=== PATIENT | female | born 1990 | race African-American/Black ===

== ENCOUNTER 2020-04-13 11:22 | Emergency (ER) | payer OTHER, SELFPAY ==
[2020-04-13 11:33] VITALS: BP 133/88; PULSE 73; RESP 16; TEMP 36.5; O2SAT 99
--- NOTE | 2020-04-13 12:06 | ED.FEMALEGU ---
HPI - Female Genitourinary General Chief complaint: Urogenital-Female Stated complaint: UTI Time Seen by Provider: 04/13/20 12:07 Source: patient and RN notes reviewed Mode of arrival: ambulatory Limitations: no limitations History of Present Illness HPI Narrative: 29-year-old female who presents to [facility] care with complaints of urinary symptoms since last p.m.Patient states that she has some urinary pressure when she urinates, denies any burning or any noted hematuria states that her urine is real dark in color. She states that she is having similar symptoms like she had previously with a UTI. Patient denies any fevers, chills, no abdominal pain, no CVA tenderness or any nausea or incidence of vomiting. Patient denies any vaginal discharge or any vaginal itching. Patient has not taken any OTC AZO for her symptoms.Last menses one week ago. MD elicited complaint: other (urinary pressure) Pertinent past history: other (previous UTI with similar symptoms) Onset (ago): day(s) (1) Location of symptoms: perineum Severity: similar to previous episodes Female Urogenital Radiation: Non-Radiating Quality of pain: other (pressure) Consistency: intermittent Vaginal discharge: none Vaginal bleeding: none Urinary symptoms: Foul Smelling Urine (urine dark in color) Exacerbating factors: none Relieving factors: none Associated symptoms: denies other symptoms Treatment prior to arrival: none Sexual activity: Yes Patient : No Date of Last Menstrual Period: 04/04/20 Related Data Allergies Allergy/AdvReac Type Severity Reaction Status Date / Time No Known Allergies Allergy Verified 04/13/20 11:34 Review of Systems Review of Systems: Narrative: CONSTITUTIONAL: Denies fever, chills, or sweats. EYES: Denies visual changes, redness, or discharge. ENT: Denies rhinorrhea, congestion, sore throat, or otalgia. CARDIOVASCULAR: Denies chest pain, palpitations, or edema. RESPIRATORY: Denies cough or dyspnea. GASTROINTESTINAL: Denies abdominal pain, nausea, vomiting, or diarrhea. GENITOURINARY: pressure in perineum with urination no visual hematuria SKIN: Denies rash or itching. MUSCULOSKELETAL: Denies back pain, joint pain, or myalgia. NEUROLOGIC: Denies headache, numbness, or weakness. PSYCHIATRIC: Denies anxiety or depression. All systems reviewed & are unremarkable except as noted in HPI and below PMFSH Past Medical History Medical History (Updated 04/14/20 @ 15:16 by Araseli Thacker NP) History of cellulitis Social History Social History (Updated 04/14/20 @ 15:17 by Araseli Thacker NP) Smoking status: Never smoker Living arrangements: with family Gender identity (if verbalized by the patient): Female Comments At time of signature, agree with nursing past medical, surgical, social history. There is no relevant family history pertinent to the presenting complaint Exam Narrative: Exam Narrative: GENERAL: Well-appearing, well-nourished, and in no acute distress. HEAD: Normocephalic, atraumatic. EYES: PERRLA and EOMI. ENT: Nares clear, no rhinorrhea or epistaxis. Mucous membranes moist. NECK: Supple.no lymphadenopathy CHEST: Clear to auscultation. No respiratory distress. HEART: Regular rate and rhythm. No murmur heard. Normal peripheral pulses. ABDOMEN: Soft, nontender to palpation, nondistended, normal active bowel sounds.No CVA tenderness on exam, perineal pressure with urine dark and cloudy in appearance EXTREMITIES: Normal range of motion. No edema. SKIN: Warm, dry, no rash. NEURO: No focal deficits. Alert and oriented x3. Course Vital Signs Vital signs: Vital Signs Temperature 36.5 C 04/13/20 11:33 Pulse Rate 73 04/13/20 11:33 Respiratory Rate 16 04/13/20 11:33 Blood Pressure 133/88 04/13/20 11:33 Pulse Oximetry 99 04/13/20 11:33 Temperature 36.5 C 04/13/20 11:33 Pulse Rate 73 04/13/20 11:33 Respiratory Rate 16 04/13/20 11:33 Blood Pressure 133/88 04/13/20 11:33 Pulse Oximetr
== END 2020-04-13 12:26 | disposition home or self-care (01) ==
PROVIDERS: Emergency Provider Registered Nurse
DX: N39.0 Urinary tract infection, site not specified (principal)
CPT/HCPCS: 81003; 87086; 87088; 99213; G0463

== ENCOUNTER 2021-07-07 09:17 | Emergency (ER) | payer MEDICAID, SELFPAY ==
[2021-07-07 09:28] VITALS: BP 116/70; PULSE 75; RESP 16; TEMP 36.3; O2SAT 100
--- NOTE | 2021-07-07 09:52 | ED.URI ---
HPI - URI/Sore Throat General Chief Complaint: Upper Respiratory Infection Stated Complaint: Sore Throat Time Seen by Provider: 07/07/21 09:52 Source: patient Mode of arrival: ambulatory Limitations: no limitations History of Present Illness HPI Narrative: Alberta Jones is a 31 yo female with no PMH w mild congestion but very sore throat this morning painful bilaterally to palpate no fever states feels poorly Related Data Allergies Allergy/AdvReac Type Severity Reaction Status Date / Time No Known Allergies Allergy Verified 07/07/21 10:08 Review of Systems Review of Systems: CONSTITUTIONAL: Denies fever, chills, sweats. EYES: Denies visual changes, redness, discharge. ENT: Denies rhinorrhea, mild congestion, has sore throat, otalgia. CARDIOVASCULAR: Denies chest pain, palpitations, edema. RESPIRATORY: Denies dyspnea, wheezing, cough GASTROINTESTINAL: Denies abdominal pain, nausea, vomiting, diarrhea. GENITOURINARY: Denies dysuria, hematuria, abnormal discharge SKIN: Denies rash or itching. NEUROLOGIC: Denies numbness, or focal weakness. PSYCHIATRIC: Denies anxiety or depression. [facility] Past Medical History Medical History History of cellulitis No acute medical problems Social History Social History Smoking status: Never smoker Gender identity (if verbalized by the patient): Female Comments At time of signature, I agree with nursing past medical, surgical, social and family history. There is no relevant family history pertinent to the presenting complaint. Exam Narrative: GENERAL: This is a well-nourished, well-developed patient, in mild distress. HEAD: normocephalic, atraumatic. EYES: . Sclera clear/white. Vision is grossly intact. EARS: External ears normal, auditory canals erythema and without drainage, TMs normal without perforation. Hearing grossly intact. NOSE: External nose normal without nasal discharge, nares without redness, mild rhinorrhea. THROAT: Mucous membranes moist, posterior pharynx erythema with mild edema NECK: Neck supple, tender lymph nodes CARDIOVASCULAR: Regular rate and rhythm without murmurs, gallops, or rubs. RESPIRATORY: Clear to auscultation. Breath sounds equal bilaterally. No wheezes, rales, or rhonchi. GASTROINTESTINAL: Abdomen soft, SKIN: warm, intact with no suspicious lesions or rash, good texture and turgor. NEURO: awake, alert, and oriented to person, place and time. There were no obvious focal neurologic abnormalities. Steady gait EXTREMITIES: Normal range of motion. BACK: Nontender without deformity Course Course Emergency Course: Patient comes with 24 hours of sore throat and mild congestion, full lymph nodes Strep test done Started on amoxicillin and prednisone and Cepacol lozenge Vital Signs Vital signs: Vital Signs Temperature 97.4 F L 07/07/21 09:28 Pulse Rate 75 07/07/21 09:28 Respiratory Rate 16 07/07/21 09:28 Blood Pressure 116/70 07/07/21 09:28 Pulse Oximetry 100 07/07/21 09:28 Temperature 97.4 F L 07/07/21 09:28 Pulse Rate 75 07/07/21 09:28 Respiratory Rate 16 07/07/21 09:28 Blood Pressure 116/70 07/07/21 09:28 Pulse Oximetry 100 07/07/21 09:28 MDM - URI/Sore Throat Differential Diagnosis Differential diagnosis: Likely upper respiratory infection, sinusitis, viral infection, bronchitis, pharyngitis and other Lab Data Labs: Strep Screen Presumptive Negative *(Reference Range: Negative)* Critical Care Time Critical Care Time Critical Care Time: No Discharge Plan Discharge Clinical Impression: Bacterial pharyngitis Patient Disposition: Home, Self-Care Condition: Stable Instructions: Antibiotic Form, Pharyngitis (ED) Additional Instructions: Take medications as prescribed Cepacol lozenges for sore throat and painful swallowing
== END 2021-07-07 10:25 | disposition home or self-care (01) ==
PROVIDERS: Emergency Provider Nurse Practitioner
DX: J02.8 Acute pharyngitis due to other specified organisms (principal)
CPT/HCPCS: 87081; 87880; 99213; G0463

== ENCOUNTER 2022-06-17 15:02 | Emergency (ER) | payer OTHER, SELFPAY ==
[2022-06-17 15:13] VITALS: BP 127/75; PULSE 99; RESP 16; TEMP 36.6; O2SAT 99
--- NOTE | 2022-06-17 15:47 | ED.URI ---
HPI - URI/Sore Throat General Chief Complaint: Abdominal Pain Stated Complaint: Abdominal Pain, Bodyaches Time Seen by Provider: 06/17/22 15:04 Source: patient Mode of arrival: ambulatory Limitations: no limitations History of Present Illness HPI Narrative: Alberta is a 32-year-old female patient presenting to the clinic today with complaints of fever,abdominal cramping, body aches, chills, runny nose, and congestion. She reports that this has been going on for approximately 2 days now. MD elicited complaint: sore throat and nasal congestion Related Data Home Medications Medication Instructions Recorded Confirmed multivit with minerals-iron 18 1 tablet PO DAILY 06/17/22 06/17/22 mg-folic ac 400 mcg-vit K 25 mcg tablet (Adults Multivitamin) Allergies Allergy/AdvReac Type Severity Reaction Status Date / Time No Known Allergies Allergy Verified 06/17/22 15:21 Review of Systems Review of Systems: Pertinent positives per HPI. Patient denies any fever, chills, rash, headache, visual changes, dizziness, cough, shortness of breath, chest pain, palpitations, nausea, vomiting, diarrhea, constipation, abdominal pain, or any urinary issues. [facility] Past Medical History Medical History History of cellulitis No acute medical problems Social History Social History Smoking status: Never smoker Gender identity (if verbalized by the patient): Female Comments At the time of my signature, I reviewed and agree with the nursing past medical, surgical, social, and family history. There is no relevant family history pertinent to the patient complaint. Exam Narrative: General: Well-developed, well nourished, in no apparent distress Head: Normocephalic, atraumatic Eyes: Pupils equally round and reactive to light bilaterally, EOM intact, sclera and conjunctive clear, no discharge, lids normal Ears: TMs intact and clear, ear canals clear, no drainage, grossly hearing normal. Nose: Nares patent, clear nasal discharge, no inflammation, no sinus tenderness. Mouth: Oral pharynx without lesions or masses, good dentition, MMM. Neck: Supple, trachea midline, no enlargement of anterior or posterior cervical nodes, no thyroid masses or goiter palpable. Cardio: Regular rate and rhythm, s1 and s2 normal, no murmur appreciated. Resp: Clear to auscultation bilaterally, no rhonchi, rales, wheezing or rubs Course Course Emergency Course: Portions of this record may have been created with voice recognition software. Level of Care: Express Care Visit Vital Signs Vital signs: Vital Signs Temperature 36.6 C 06/17/22 15:13 Pulse Rate 99 06/17/22 15:13 Respiratory Rate 16 06/17/22 15:13 Blood Pressure 127/75 06/17/22 15:13 Pulse Oximetry 99 06/17/22 15:13 Oxygen Delivery Room Air 06/17/22 15:13 Temperature 36.6 C 06/17/22 15:13 Pulse Rate 99 06/17/22 15:13 Respiratory Rate 16 06/17/22 15:13 Blood Pressure 127/75 06/17/22 15:13 Pulse Oximetry 99 06/17/22 15:13 Oxygen Delivery Room Air 06/17/22 15:13 Vital signs reviewed MDM - URI/Sore Throat MDM Narrative Medical decision making narrative: At the time of visit patient is resting comfortably on the exam table. Influenza and COVID testing were completed and both were negative in the clinic today. Supportive measures were discussed with the patient she voiced understanding of discharge instructions and agrees to treatment plan. Differential Diagnosis Differential diagnosis: Likely upper respiratory infection, otitis media, sinusitis, viral infection, bronchitis, influenza, pharyngitis and other ( COVID) Lab Data Labs: Influenza A Screen Negative Reference Range: Negative Influenza B Screen Negative
== END 2022-06-17 16:00 | disposition home or self-care (01) ==
PROVIDERS: Emergency Provider Nurse Practitioner Family
DX: J06.9 Acute upper respiratory infection, unspecified (principal); B34.9 Viral infection, unspecified; Z20.822 Contact with and (suspected) exposure to COVID-19
CPT/HCPCS: 87426; 87804; 99213; C9803; G0463

== ENCOUNTER 2023-01-30 11:51 | Emergency (ER) | payer OTHER, SELFPAY ==
[2023-01-30 12:17] VITALS: BP 124/73; PULSE 73; RESP 16; TEMP 36.6; O2SAT 100
--- NOTE | 2023-01-30 12:26 | ED.SKABFB ---
HPI - Skin/Abscess/Foreign Bdy General Chief complaint: Skin/Abscess/Foreign Body Stated complaint: Insect Bite Time Seen by Provider: 01/30/23 12:26 Source: patient Mode of arrival: ambulatory Limitations: no limitations History of Present Illness HPI narrative: 32 yo F presents with c/o wasp sting to L hand and L inner thigh. Cutting grass yesterday and was stung. Woke up this AM and worsening of swelling to L hand. Took benadryl. States has never had wasp sting and didnt' know what to do . c/o itching. no pain. all systems reviewed and negative except as noted above. Related Data Allergies Allergy/AdvReac Type Severity Reaction Status Date / Time No Known Allergies Allergy Verified 01/30/23 12:14 Review of Systems Review of Systems: CONSTITUTIONAL: Denies fever, chills, or sweats. EYES: Denies visual changes, redness, or discharge. ENT: Denies rhinorrhea, congestion, sore throat, or otalgia. CARDIOVASCULAR: Denies chest pain, palpitations, or edema. RESPIRATORY: Denies cough or dyspnea. GASTROINTESTINAL: Denies abdominal pain, nausea, vomiting, or diarrhea. GENITOURINARY: Denies dysuria or hematuria. SKIN: Denies rash or itching. Reports redness and swelling from wasp sting. MUSCULOSKELETAL: Denies back pain, joint pain, or myalgia. NEUROLOGIC: Denies headache, numbness, or weakness. PSYCHIATRIC: Denies anxiety or depression. All other systems reviewed are negative, except as documented in HPI. PMFSH Past Medical History Medical History History of cellulitis No acute medical problems Social History Social History Smoking status: Never smoker Living arrangements: with family Gender identity (if verbalized by the patient): Female Comments At time of signature, agree with nursing past medical, surgical, social and family history. There is no relevant family history pertinent to the presenting complaint. Exam Narrative: GENERAL: This is a well-nourished, well-developed patient, in no apparent distress. HEAD: normocephalic, atraumatic. EYES: PERRL. Sclera clear/white. Vision is grossly intact. EARS: External ears normal NOSE: External nose normal NECK: Neck supple, non-tender without lymphadenopathy, masses or thyromegaly. CARDIOVASCULAR: Regular rate and rhythm without murmurs, gallops, or rubs. RESPIRATORY: Clear to auscultation. Breath sounds equal bilaterally. No wheezes, rales, or rhonchi. SKIN: warm, Dry, intact with no suspicious lesions or rash, good texture and turgor. area of erythema to dorsal aspect L hand and L inner thigh. approx. 4cm diameter. mild warmth. no signs of infection. NEURO: awake, alert, and oriented to person, place and time. There were no obvious focal neurologic abnormalities. EXTREMITIES: No joint tenderness, effusion, or edema noted. Course Course Level of Care: Express Care Visit Vital Signs Vital signs: Vital Signs Temperature 36.6 C 01/30/23 12:17 Pulse Rate 73 01/30/23 12:17 Respiratory Rate 16 01/30/23 12:17 Blood Pressure 124/73 01/30/23 12:17 Pulse Oximetry 100 01/30/23 12:17 Oxygen Delivery Room Air 01/30/23 12:17 Temperature 36.6 C 01/30/23 12:17 Pulse Rate 73 01/30/23 12:17 Respiratory Rate 16 01/30/23 12:17 Blood Pressure 124/73 01/30/23 12:17 Pulse Oximetry 100 01/30/23 12:17 Oxygen Delivery Room Air 01/30/23 12:17 reviewed MDM - Skin/Abscess/Foreign Bdy MDM Narrative Medical decision making narrative: Patient is aware of diagnosis, understands and agrees to treatment plan. Anticipatory guidance given. Patient agrees to follow-up as directed and is aware of reasons to seek care at the emergency department. Portions of this record may have been created with voice recognition software Differential Diagnosis Differential diagnosis: Likely insect bites Discharge Plan D
== END 2023-01-30 12:52 | disposition home or self-care (01) ==
PROVIDERS: Emergency Provider Nurse Practitioner Family
DX: T63.461A Toxic effect of venom of wasps, accidental (unintentional), initial encounter (principal)
CPT/HCPCS: 99213; G0463